=== PATIENT | male | born 1975 | race Caucasian/White ===

== ENCOUNTER 2021-06-04 00:08 | Emergency (ER) | payer BC ==
[~2021-06-04] VITALS: Ht 170.2 cm; Wt 77.1 kg
[2021-06-04] MEDS ORDERED: LOSA50 PO (00:44)
[2021-06-04] MEDS ORDERED: Keflex500 MG PO (02:20)
== END 2021-06-04 02:25 | disposition home or self-care (01) ==
LOC: ER 00:08
DX: S91.312A Laceration without foreign body, left foot, initial encounter (principal); F10.129 Alcohol abuse with intoxication, unspecified; Z23 Encounter for immunization; Z79.899 Other long term (current) drug therapy
CPT/HCPCS: 73630; 90471; 90714; 99282-25; A9270

== ENCOUNTER → 2024-03-28 | Outpatient (CLI) | payer BC ==
[~2024-03-28] MED LIST: Keflex500 MG PO; LOSA50 PO
[2024-03-28 16:25] LABS: BASOPHILS ABSOLUTE AUTO 0.05 K/mm3 (0.00-0.23); BASOPHILS PERCENT AUTO 1 % (0-2); EOSINOPHILS ABSOLUTE AUTO 0.37 K/mm3 (0.00-0.68); EOSINOPHILS PERCENT AUTO 3 % (0-6); Hematocrit 43.7 % (37.0-53.0); IMMATURE GRAN ABSOLUTE AUTO 0.05 K/mm3 (0.00-0.10); IMMATURE GRAN PERCENT AUTO 1 % (0-1); LYMPHOCYTES ABSOLUTE AUTO 1.13 K/mm3 (0.84-5.20); LYMPHOCYTES PERCENT AUTO 10 % (21-46); MONOCYTES ABSOLUTE AUTO 1.05 K/mm3 (0.16-1.47); MONOCYTES PERCENT AUTO 10 % (4-13); Mean Corpuscular HGB 32.3 pg (26.0-34.0); Mean Corpuscular HGB Conc 34.3 g/dL (31.5-36.5); Mean Corpuscular Volume 94 fL (80-100); NEUTROPHILS PERCENT AUTO 76 % (41-73); Platelet Count 237 K/mm3 (150-400); RDW Coefficient Variation 12.3 % (11.7-14.2); RDW Standard Deviation 42.8 fL (35.1-46.3); Red Blood Cell Count 4.64 M/mm3 (4.30-5.90); White Blood Cell Count 10.95 K/mm3 (4.00-11.30)
[2024-03-28 16:36] LABS: Albumin, Blood 3.7 g/dL (3.4-5.0); Albumin/Globulin Ratio 0.8 (0.8-1.8); Bilirubin, Total 1.4 mg/dL (0.1-1.0); Calcium, Blood 10.1 mg/dL (8.5-10.1); Creatinine, Blood 1.67 mg/dL (0.60-1.20); Globulin, Blood 4.5 g/dL (2.2-4.0); Potassium, Blood 4.3 mmol/L (3.5-5.5); Total Protein, Blood 8.2 g/dL (6.4-8.2)
[2024-03-28 16:56] LABS: Bilirubin, Direct 0.3 mg/dL (0.0-0.3)
== END | disposition home or self-care (01) ==
LOC: LAB SHORT 16:21 → LAB 16:21
PROVIDERS: Physician Assistant
DX: R17 Unspecified jaundice (principal); R10.9 Unspecified abdominal pain
CPT/HCPCS: 80053; 82248; 83690; 85025